=== PATIENT | female | born 1990 | race Caucasian/White ===

== ENCOUNTER 2018-11-29 03:06 | Inpatient (IN) ==
[2018-11-29 03:25] LABS: Basophils # 0.1 K/mm3 (0-0.2); Basophils % 0.5 % (0.1-2.0); Eosinophils # 0.3 K/mm3 (0.0-0.4); Eosinophils % 2.5 % (0.1-12.0); Hemoglobin 14.2 g/dL (12.2-16.2); Lymphocytes # 5.4 K/mm3 (0.7-4.5); Lymphocytes % 49.1 % (10-50); Mean Corpuscular HGB Conc 32.2 g/dL (31.8-35.4); Mean Corpuscular Hemoglobin 28.9 pg (27.0-31.2); Mean Corpuscular Volume 89.9 fl (81-99); Mean Platelet Volume 7.7 fl (7.4-10.4); Monocytes # 0.5 K/mm3 (0.1-1.0); Monocytes % 4.1 % (1.7-9.3); Neutrophils # 4.9 K/mm3 (1.8-7.8); Neutrophils % 43.7 % (37.0-80.0); Platelet Count 301 K/mm3 (142-424); Red Cell Distribution Width 13.5 % (11.5-17.5); White Blood Count 11.1 K/mm3 (4.8-10.8)
[2018-11-29 03:46] LABS: Alanine Aminotransferase 45 U/L (12-78); Albumin Level 3.6 gm/dL (3.4-5.0); Albumin/Globulin Ratio 0.9 (1.1-1.8); Alkaline Phosphatase 89 U/L (46-116); Anion Gap 14.6 mEq/L (5-15); Aspartate Amino Transferase 31 U/L (15-37); Bilirubin,Total 0.3 mg/dL (0.2-1.0); Blood Urea Nitrogen 13 mg/dL (7-18); Calcium 8.8 mg/dL (8.5-10.1); Carbon Dioxide 28 mmol/L (21.0-32.0); Chloride 101 mmol/L (98-107); Globulin 4.1 gm/dl (1.3-3.2); Glucose 179 mg/dL (74-106); Potassium 3.6 mmoL/L (3.5-5.1); Sodium 140 mmol/L (136-145); Total Protein,Serum 7.7 gm/dL (6.4-8.2)
[2018-11-29 03:53] LABS: Acetaminophen 0 ug/mL (10-30); Ethyl Alcohol 0 mg/dL (0-99)
--- NOTE | 2018-11-29 03:54 | Emergency Department Note ---
ED Disposition Clinical Impression: Poisoning by opiate or related narcotic, Trichomonas infection CAP (community acquired pneumonia) Qualifiers: Laterality: unspecified laterality Qualified Code(s): J18.9 - Pneumonia, unspecified organism Obesity Qualifiers: Obesity type: due to excess calories Obesity classification: adult class 2 (BMI 35 - 39.9) Serious obesity comorbidity presence: without serious comorbidity Body mass index: BMI 39.0-39.9 Qualified Code(s): E66.09 - Other obesity due to excess calories; Z68.39 - Body mass index (BMI) 39.0-39.9, adult Disposition: Admitted as Observation Condition on Discharge: Fair Referrals: Provider,Referral, [Primary Care Provider] - - Critical Care Critical Care Time: No Attestation: On 11/29/18, the high probability of a clinically significant, sudden or life threatening deterioration of the following system(s) required my full and direct attention, intervention and personal management. The time I documented below is in addition to time spent performing reported procedures but includes the following listed in this critical care notation. Medical Decision Making - Medical Records Medical records reviewed: Yes: I reviewed the patient's medical records. - Vasiliy Inquiry Pt receiving controlled substance: No Vital Signs: 11/29/18 03:07 11/29/18 04:07 11/29/18 04:30 Temperature 97.9 F Temperature Source Oral Pulse Rate [Right Brachial] 112 H 111 H 101 H Respiratory Rate 14 Blood Pressure [Right Arm] 146/85 H 109/48 L 131/81 Blood Pressure Mean [Right Arm] 105 68 97 02 Sat by Pulse Oximetry 97 98 91 L Oxygen Delivery Method Non-Rebreather Non-Rebreather Nasal Cannula Oxygen Flow Rate (LPM) 10 10 4 11/29/18 05:00 11/29/18 05:30 11/29/18 06:00 Temperature Temperature Source Pulse Rate [Right Brachial] 121 H 112 H 125 H Respiratory Rate 18 15 Blood Pressure [Right Arm] 144/62 H 101/64 L 130/72 Blood Pressure Mean [Right Arm] 89 76 91 02 Sat by Pulse Oximetry 95 90 L 89 L Oxygen Delivery Method Nasal Cannula Nasal Cannula Nasal Cannula Oxygen Flow Rate (LPM) 2 2 2 - Lab Data Lab results reviewed: Yes: I reviewed the patient's lab results. Lab Results 11/29/18 03:15: WBC 11.1 H, RBC 4.90, Hgb 14.2, Hct 44.0, MCV 89.9, MCH 28.9, MCHC 32.2, RDW 13.5, Plt Count 301, MPV 7.7, Neut % (Auto) 43.7, Lymph % (Auto) 49.1, [place] % (Auto) 4.1, Eos % (Auto) 2.5, Baso % (Auto) 0.5, Neut # (Auto) 4.9, Lymph # (Auto) 5.4 H, [place] # (Auto) 0.5, Eos # (Auto) 0.3, Baso # (Auto) 0.1 11/29/18 03:15: Sodium 140, Potassium 3.6, Chloride 101, Carbon Dioxide 28, Anion Gap 14.6, BUN 13, Creatinine 0.92, Estimated Creat Clear 151, Estimated GFR 73, Est GFR ( Amer) 89, Glucose 179 H, Calcium 8.8, Total Bilirubin 0.3, AST 31, ALT 45, Alkaline Phosphatase 89, Troponin I < 0.02, Total Protein 7.7, Albumin 3.6, Globulin 4.1 H, Albumin/Globulin Ratio 0.9 L, Salicylates 3.0, Acetaminophen 0 L, Plasma/Serum Alcohol 0 11/29/18 04:15: Urine HCG, Qual Negative 11/29/18 04:15: Urine Opiates Screen Negative, Urine Methadone Screen Negative, Ur Barbituates Screen Negative, Ur Phencyclidine Scrn Negative, Ur Amphetamines Screen Negative, U Benzodiazepines Scrn Negative, Urine Cocaine Screen Negative, U Marijuana (THC) Screen Positive H 11/29/18 04:32: Urine Color Yellow, Urine Appearance Clear, Urine pH 6.5, Ur Specific [place] 1.025, Urine Protein 1+, Urine Glucose (UA) Negative, Urine Ketones Negative, Urine Blood 2+, Urine Nitrate Negative, Urine Bilirubin Negative, Urine Urobilinogen 0.2, Ur Leukocyte Esterase Negative, Urine RBC 5- 10, Urine WBC 5-10, Ur Squamous Epith Cells 20-50, Urine Bacteria 1+, Urine Mucus 1+, Urine Trichomonas 1+ 11/29/18 04:55: Lactate 1.5 Result diagrams: 11/29/18 03:15 11/29/18 03:15 Orders (Tests/Meds): ED MEDICATIONS Generic Name Dose Route Start Last Admin Trade Name Eleazar PRN Reason Stop Dose Admin Sodium Chloride 1,000 mls @ 999 mls/hr 11/29/18 03:15 11/29/18 03:30 Sod Chlor 0.9% 1000ml Bag IV 11/29/18 04:15 999 mls/hr .Q1H1M ANTOINE Administration Ceftriaxone Sodium 1 gm/ 50 mls @ 100 mls/hr 11/29/18 05:00 11/29/18 04:56 Sodium Chloride IV 12/13/18 04:59 100 mls/hr Q24H ANTOINE Administration Protocol Azithromycin 500 mg/ Sodium 250 mls @ 250 mls/hr 11/29/18 06:00 11/29/18 05:56 Chloride IV 12/13/18 05:59 250 mls/hr Q24H ANTOINE Administration Protocol Sodium Chloride 10 ml 11/29/18 03:14 Saline Flush 10ml Syringe IV 12/29/18 03:13 NEEDED PRN Maintain IV Site Discontinued Medications Generic Name Dose Route Start Last Admin Trade Name Eleazar PRN Reason Stop Dose Admin Albuterol/Ipratropium 3 ml 11/29/18 04:34 11/29/18 04:40 Duoneb 3ml Neb IH 11/29/18 04:35 3 ml ONCE ONE Administration Methylprednisolone Sodium Succinate 125 mg 11/29/18 04:50 11/29/18 04:57 Solu-Medrol 125mg/2ml Vial IV 11/29/18 04:51 125 mg ONCE ONE Administration ORDERS Category Date Time Status Urinalysis and Microscopic Stat Lab 11/29/18 04:32 Ordered Blood Culture Stat Micro 11/29/18 04:51 Ordered Blood Culture Stat Micro 11/29/18 04:51 Ordered Blood Culture Stat Micro 11/29/18 04:51 Ordered ECG Request by /Naseem Stat Y 11/29/18 03:14 Ordered - Radiology Data #1 Image(s): Chest Image Reviewed: Yes I reviewed the patient's radiology image Preliminary Findings: Abnormal (bilar cap) - ECG Data Tracing #1 Arrhythmias present: sinus tach Ischemic changes: non-specific ST-T wave changes - Physician Consults Physician Consulted: mac Reason -: Admission Overdose HPI - General Chief Complaint: Overdose Stated Complaint: OVERDOSE Time Seen by Provider: 11/29/18 03:10 Mode of Arrival: EMS Source of Information: Patient, Relative, EMS, Medical Record Limitations: No Limitations Description of Symptoms (Recalled from ER Triage Doc. by RN): PT BROUGHT IN BY EMS FOR SUSPECTED OVERDOSE. PT REPORTS SHE "TRIED IT ONE TIME" AND THAT SHE "THINKS IT WAS HERION". PT REPORTED THAT SHE SNORTED IT. REPORTS HX OF ETOH ABUSE BUT NONE TONIGHT. - History of Present Illness HPI Narrative: pt with reported use of heroin and had resp arest with positive resp to narcan - pt with sob - MD complaint: accidental overdose Onset (ago): hour(s) Timing confirmed by: other (ems) Context: Accidental Overdose: wanted to get high Treatments Prior to Arrival: narcan - Related Data Home Medications Medication Instructions Recorded Confirmed No Known Home Medications 11/29/18 11/29/18 Allergies Allergy/AdvReac Type Severity Reaction Status Date / Time No Known Allergies Allergy Verified 11/29/18 03:[address] [facility] History - Hepatitis A Screen Drug use history?: Yes High risk sexual behaviors?: Yes History of sexually transmitted infection?: No Currently employed?: No Childcare worker?: No Do you have indoor plumbing?: Yes Do you have electricity?: Yes Attestation statement:: This patient has been screened for Hepatitis A risk factors. I have reviewed the patient's past medical history: Yes Medical History: Denies:: Cancer, Diabetes Mellitus Type 1, Diabetes Mellitus Type 2, MRSA Amputation: No Fractures: No - Social History Smoking Status: Current every day smoker Tobacco Type: cigarettes Alcohol Intake: current Substance Use Type: heroin Last Used Substance: just [employer] Occupational Status: unemployed - Psychiatric History Expresses thoughts of harming self/others: None Suicide Plan Description: No Plan ROS Obtained: Yes All systems reviewed & no additional complaints - Constitutional Constitutional: Denies fever(s) - Eyes Eyes: Denies change in vision - ENT Ears, Nose, Mouth, and Throat: Denies sore throat - Cardiovascular Cardiovascular: Denies chest pain at rest - Respiratory Respiratory: No cough, No non-productive cough, Yes dyspnea - Gastrointestinal Gastrointestingal: Denies: abdominal pain - Genitourinary Female Genitourinary: Denies dysuria - Musculoskeletal Musculoskeletal: Denies neck pain - Integumentary/Breasts Skin/Breast: Denies rash - Neurologic Neurologic: Denies seizure-like activity Physical Exam - General General appearance: obese - Head Head exam: normocephalic - Eye Eye exam: Present: PERRL, EOMI, other (rt subconj hemmorrage ) - ENT ENT exam: Present: mucous membranes dry - Neck Neck exam: Absent: trachea midline - Respiratory Respiratory exam: Present: other (bilat rhonchi ). Absent: respiratory distress - Cardiovascular Cardiovascular exam: Present: regular rate. Absent: systolic murmur - Abdominal Exam Abdominal exam: Present: soft - Extremities Exam Extremities exam: Absent: calf tenderness - Neurological Exam Neurological exam: Present: alert, oriented X3, CN II-XII intact - Psychiatric Psychiatric exam: Absent: anxious - Skin Skin exam: Absent: rash
[2018-11-29 04:51] LABS: Microscopic, Urine URINE MICROSCOPIC (MICROSCOPIC)
[2018-11-29 04:58] LABS: Appearance,Urine CLEAR (Clear); Bilirubin,Urine Negative (Negative); Blood, Urine 2+ (Negative); Color,Urine YELLOW (Yellow); Glucose,Urine (UA) Negative (Negative); Ketones,Urine Negative (Negative); Leukocyte Esterase,Urine Negative (Negative); PH,Urine 6.5 (5.0-8.5); Protein,Urine 1+ (Negative); Specific Gravity, Urine 1.025 (1.005-1.030); Urobilinogen,Urine 0.2 EU/dl (0.2)
[2018-11-29 05:33] LABS: Bacteria,Urine 1+ /lpf; Mucus,Urine 1+ /lpf; Squamous Epithelial Cell,Urine 20-50 #/hpf (0-5); Trichomonas,Urine 1+ /lpf
[2018-11-29 05:44] LABS: Amphetamine/Metha Screen,Urine Negative ng/mL (<1000); Barbiturates Screen,Urine Negative ng/mL (<200); Benzodiazepines Screen,Urine Negative ng/mL (<200); Cannabinoid Screen,Urine Positive ng/mL (<50); Cocaine Screen,Urine Negative ng/mL (<300); Methadone Screen,Urine Negative ng/mL (<300); Opiate Screen,Urine Negative ng/mL (<300); Phencyclidine Screen,Urine Negative ng/mL (<25)
--- NOTE | 2018-11-29 07:36 | Pharmacy Consult Notes ---
[facility] Pharmacy VTE Monitoring - Patient Demographics Admission date: 11/29/18 Report Date: 11/29/18 Time: 07:36 Allergies/Adverse Reactions: Patient Allergies No Known Allergies Allergy (Verified 11/29/18 03:14) Height: 1.68 m Weight: 114.475 kg Patient Problems: Current Active Problems CAP (community acquired pneumonia) (Acute) Poisoning by opiate or related narcotic (Acute) Obesity (Acute) Trichomonas infection (Acute) - VTE Risk Labs: VTE Related Lab Results Hgb 14.2 g/dL (12.2-16.2) 11/29/18 03:15 Hct 44.0 % (37.0-47.0) 11/29/18 03:15 Plt Count 301 K/mm3 (142-424) 11/29/18 03:15 BUN 13 mg/dL (7-18) 11/29/18 03:15 Creatinine 0.92 mg/dL (0.55-1.02) 11/29/18 03:15 Estimated Creat Clear 151 mL/min (50-200) 11/29/18 03:15 - Prophylaxis VTE Prophylaxis Ordered?: Yes Types of VTE Prophylaxis: TEDS Thigh High Location of Applied Device: Bilateral Lower Extremeties - VTE Diagnosis Confirmed Treatment or plan recommended: Continue Current Treatment
--- NOTE | 2018-11-29 08:23 | History & Physical Report ---
*Admission Date: 11/29/18 <Margo Cao 11/29/18 08:36> *Chief complaint: cough, heroin OD <Margo Cao 11/29/18 08:36> *History of present illness: Ms Rojas is a 28-year-old female with a history of PCOS, hypertension, and recurrent UTIs. She states she is unsure what time, but she used heroin and the next thing she remembers was being on a stretcher. According to the ER note, she snorted the heroin. The patient states she was given Narcan. She says this is the first time she has ever used heroin. She does admit to smoking marijuana on occasion. She denies any other drug use. She does drink alcohol frequently. She was evaluated in the emergency room for a heroin overdose and was also found to have a community-acquired pneumonia. She states approximately 2 days ago she began to develop a cough and some pain in her chest with coughing. Of note she does smoke a pack cigarettes daily. She was admitted for further evaluation and treatment. <Margo Cao 11/29/18 08:36> [facility] History I have reviewed the patient's past medical history: Yes <Margo Cao 11/29/18 08:36> Medical History: Reports:: Hypertension Denies:: Cancer, Diabetes Mellitus Type 1, Diabetes Mellitus Type 2, MRSA <Margo Cao 11/29/18 08:36> Have you ever received a pneumonia vaccine?: No <Margo Cao 11/29/18 08:36> Have you received a flu vaccine this season?: No <Margo Cao 11/29/18 08:36> Other Medical History: Reports: Other (PCOS, recurrent UTI's) <Margo Cao 11/29/18 08:36> Other Surgeries: Yes: Other (Ovarian cysts removed) <Margo Cao 11/29/18 08:36> Amputation: No <Margo Cao 11/29/18 08:36> Fractures: No <Margo Cao 11/29/18 08:36> - *Social History Smoking Status: Current every day smoker <Margo Cao 11/29/18 08:36> Tobacco Type: cigarettes <Margo Cao 11/29/18 08:36> # Packs/Day (cigarettes): 1 <SmithMicha arauza 11/29/18 08:36> Alcohol Intake: current <Micha Caoa 11/29/18 08:36> Substance Use Type: heroin <Micha Caoa 11/29/18 08:36> Last Used Substance: just [employer] <Micha Caoa 11/29/18 08:36> Occupational Status: unemployed <Micha Caoa 11/29/18 08:36> Travel in the last 8 weeks: None <Micha Caoa 11/29/18 08:36> - Psychiatric History Expresses thoughts of harming self/others: None <Margo Cao 11/29/18 08:36> Suicide Plan Description: No Plan <Margo Cao 11/29/18 08:36> *Family Hx:: Cancer (breast), Coronary Artery Disease, Diabetes, Heart Attack, Hypertension <Micha Caoa 11/29/18 08:36> Review of Systems - Constitutional Denies fever(s), Denies weakness <KileyMargo 11/29/18 08:36> - Eyes Denies blurry vision, Denies double vision <KileyMargo 11/29/18 08:36> - ENT Reports nasal congestion, Reports sore throat <KileyMargo 11/29/18 08:36> - *Cardiovascular Denies chest pain, Denies shortness of breath, Denies rapid, pounding, or irregular heartbeat <KileyMargo 11/29/18 08:36> - *Respiratory Reports chest congestion, Reports cough, Denies shortness of breath <KileyMargo 11/29/18 08:36> - *Gastrointestinal Reports constipation, Reports loose stools, Denies abdominal pain, Denies nausea, Denies vomiting <KileyMargo 11/29/18 08:36> - *Genitourinary Reports painful urination, Denies difficulty urinating <Micha Caoa 11/29/18 08:36> - *Musculoskeletal Reports back pain, Denies body aches <KileyMargo 11/29/18 08:36> - *Neurologic Denies headache(s), Denies seizure-like activity, Denies dizziness, Denies weakness <Margo Cao - 11/29/18 08:36> Meds Home Medications Medication Instructions Recorded Confirmed Type No Known Home Medications 11/29/18 11/29/18 History <Vargas Bolivar - 11/29/18 09:39> Allergies Allergy/AdvReac Type Severity Reaction Status Date / Time No Known Allergies Allergy Verified 11/29/18 08:45 <Vargas Bolivar - 11/29/18 09:39> Exam Vital signs and Labs for Last 24 Hours: Temp Pulse Resp BP Pulse Ox 98.3 F 89 18 150/93 H 93 L 11/29/18 07:05 11/29/18 09:25 11/29/18 07:05 11/29/18 07:05 11/29/18 09:25 Laboratory Results - last 24 hr 11/29/18 03:15: WBC 11.1 H, RBC 4.90, Hgb 14.2, Hct 44.0, MCV 89.9, MCH 28.9, MCHC 32.2, RDW 13.5, Plt Count 301, MPV 7.7, Neut % (Auto) 43.7, Lymph % (Auto) 49.1, [place] % (Auto) 4.1, Eos % (Auto) 2.5, Baso % (Auto) 0.5, Neut # (Auto) 4.9, Lymph # (Auto) 5.4 H, [place] # (Auto) 0.5, Eos # (Auto) 0.3, Baso # (Auto) 0.1 11/29/18 03:15: Sodium 140, Potassium 3.6, Chloride 101, Carbon Dioxide 28, Anion Gap 14.6, BUN 13, Creatinine 0.92, Estimated Creat Clear 151, Estimated GFR 73, Est GFR ( Amer) 89, Glucose 179 H, Calcium 8.8, Total Bilirubin 0.3, AST 31, ALT 45, Alkaline Phosphatase 89, Troponin I < 0.02, Total Protein 7.7, Albumin 3.6, Globulin 4.1 H, Albumin/Globulin Ratio 0.9 L, Salicylates 3.0, Acetaminophen 0 L, Plasma/Serum Alcohol 0 11/29/18 04:15: Urine HCG, Qual Negative 11/29/18 04:15: Urine Opiates Screen Negative, Urine Methadone Screen Negative, Ur Barbituates Screen Negative, Ur Phencyclidine Scrn Negative, Ur Amphetamines Screen Negative, U Benzodiazepines Scrn Negative, Urine Cocaine Screen Negative, U Marijuana (THC) Screen Positive H 11/29/18 04:32: Urine Color Yellow, Urine Appearance Clear, Urine pH 6.5, Ur Specific [place] 1.025, Urine Protein 1+, Urine Glucose (UA) Negative, Urine Ketones Negative, Urine Blood 2+, Urine Nitrate Negative, Urine Bilirubin Negative, Urine Urobilinogen 0.2, Ur Leukocyte Esterase Negative, Urine RBC 5- 10, Urine WBC 5-10, Ur Squamous Epith Cells 20-50, Urine Bacteria 1+, Urine Mucus 1+, Urine Trichomonas 1+ 11/29/18 04:55: Lactate 1.5 <Vargas Bolivar - 11/29/18 09:39> Temp Pulse Resp BP Pulse Ox 98.3 F 109 H 18 150/93 H 94 L 11/29/18 07:05 11/29/18 07:05 11/29/18 07:05 11/29/18 07:05 11/29/18 07:05 Laboratory Results - last 24 hr 11/29/18 03:15: WBC 11.1 H, RBC 4.90, Hgb 14.2, Hct 44.0, MCV 89.9, MCH 28.9, MCHC 32.2, RDW 13.5, Plt Count 301, MPV 7.7, Neut % (Auto) 43.7, Lymph % (Auto) 49.1, [place] % (Auto) 4.1, Eos % (Auto) 2.5, Baso % (Auto) 0.5, Neut # (Auto) 4.9, Lymph # (Auto) 5.4 H, [place] # (Auto) 0.5, Eos # (Auto) 0.3, Baso # (Auto) 0.1 11/29/18 03:15: Sodium 140, Potassium 3.6, Chloride 101, Carbon Dioxide 28, Anion Gap 14.6, BUN 13, Creatinine 0.92, Estimated Creat Clear 151, Estimated GFR 73, Est GFR ( Amer) 89, Glucose 179 H, Calcium 8.8, Total Bilirubin 0.3, AST 31, ALT 45, Alkaline Phosphatase 89, Troponin I < 0.02, Total Protein 7.7, Albumin 3.6, Globulin 4.1 H, Albumin/Globulin Ratio 0.9 L, Salicylates 3.0, Acetaminophen 0 L, Plasma/Serum Alcohol 0 11/29/18 04:15: Urine HCG, Qual Negative 11/29/18 04:15: Urine Opiates Screen Negative, Urine Methadone Screen Negative, Ur Barbituates Screen Negative, Ur Phencyclidine Scrn Negative, Ur Amphetamines Screen Negative, U Benzodiazepines Scrn Negative, Urine Cocaine Screen Negative, U Marijuana (THC) Screen Positive H 11/29/18 04:32: Urine Color Yellow, Urine Appearance Clear, Urine pH 6.5, Ur Specific [place] 1.025, Urine Protein 1+, Urine Glucose (UA) Negative, Urine Ketones Negative, Urine Blood 2+, Urine Nitrate Negative, Urine Bilirubin Negative, Urine Urobilinogen 0.2, Ur Leukocyte Esterase Negative, Urine RBC 5- 10, Urine WBC 5-10, Ur Squamous Epith Cells 20-50, Urine Bacteria 1+, Urine Mucus 1+, Urine Trichomonas 1+ 11/29/18 04:55: Lactate 1.5 <Margo Cao - 11/29/18 08:36> I & O for Last 24 hours: Intake & Output 11/26/18 11/27/18 11/28/18 11/29/18 11:59 11:59 11:59 11:59 Intake Total 1400 / 1400 Balance 1400 / 1400 Weight 252 lb 6 oz <Vargas Bolivar - 11/29/18 09:39> Intake & Output 11/26/18 11/27/18 11/28/18 11/29/18 11:59 11:59 11:59 11:59 Intake Total 1400 / 1400 Balance 1400 / 1400 Weight 252 lb 6 oz <Margo Cao - 11/29/18 08:36> - Constitutional no acute distress <Margo Cao 11/29/18 08:36> - *Routine HEENT Exam Head: Present: normocephalic, atraumatic <Margo Cao 11/29/18 08:36> Eye: Present: EOMI, PERRL (right subconjunctival hemorrhage) <Margo Cao 11/29/18 08:36> ENT: Present: mucous membranes dry <Margo Cao 11/29/18 08:36> - *Routine Neck Exam Present: supple. Absent: lymphadenopathy <Margo Cao 11/29/18 08:36> - *Routine Respiratory Exam Present: rhonchi (throughout), wheezes (throughout) <Margo Cao 11/29/18 08:36> - *Routine Cardiovascular Exam Present: RRR [facility] 08:36> - *Routine Abdominal Exam Present: soft, normoactive bowel sounds. Absent: tenderness <Margo Cao 11/29/18 08:36> - *Routine Extremities Exam Absent: cyanosis, clubbing, edema <[facility] 11/29/18 08:36> - *Routine Skin Exam Present: warm. Absent: rash <Margo Cao 11/29/18 08:36> - *Routine Neurological Exam Present: alert, oriented X3 [facility] 08[facility]36> H&P: Result - Impressions CXR - Bilateral upper lobe pneumonia Left Foot X-ray - No acute finding <[facility] 11/29/18 08:36> Assessment and Plan (1) CAP (community acquired pneumonia) Current visit: Yes Status: Acute Qualifiers: Laterality: unspecified laterality Qualified Code(s): J18.9 - Pneumonia, unspecified organism Category: Medical Code(s): J18.9 - Pneumonia, unspecified organism (2) Heroin overdose Current visit: Yes Status: Acute Category: Medical Code(s): T40.1X1A - Poisoning by heroin, accidental (unintentional), initial encounter (3) Trichomonas infection Current visit: Yes Status: Acute Category: Medical Code(s): A59.9 - Trichomoniasis, unspecified <Margo Cao 11/29/18 08:19> (1) CAP (community acquired pneumonia) Current visit: Yes Status: Acute Qualifiers: Laterality: unspecified laterality Qualified Code(s): J18.9 - Pneumonia, unspecified organism Category: Medical Code(s): J18.9 - Pneumonia, unspecified organism (2) Heroin overdose Current visit: Yes Status: Acute Category: Medical Code(s): T40.1X1A - Poisoning by heroin, accidental (unintentional), initial encounter (3) Trichomonas infection Current visit: Yes Status: Acute Category: Medical Code(s): A59.9 - Trichomoniasis, unspecified (4) Subconjunctival hemorrhage of right eye Current visit: Yes Status: Acute Category: Medical Code(s): H11.31 - Conjunctival hemorrhage, right eye <Vargas Bolivar - 11/29/18 09:39> - Assessment and plan all Dx Assessment and Plan for all problems:: Patient seen and examined. Concur with above assessment and plan. Will start oral Flagyl. <Vargas Bolivar - 11/29/18 09:39> Will continue IV antibiotics, IV steroids, and duo nebs for her pneumonia. The patient currently has oxygen in place. Will discuss starting on flagyl with Dr. Bolivar for the positive Trichomonas in her urine. Will consult care management for discussion of treatment options for her drug abuse. <Margo Cao - 11/29/18 08:36>
[2018-11-30 07:25] LABS: Hematocrit 39.2 % (37.0-47.0); Hemoglobin 12.4 g/dL (12.2-16.2); Lymphocytes # 0.9 K/mm3 (0.7-4.5); Lymphocytes % 5.5 % (10-50); Mean Corpuscular HGB Conc 31.7 g/dL (31.8-35.4); Mean Corpuscular Hemoglobin 28.8 pg (27.0-31.2); Mean Corpuscular Volume 90.8 fl (81-99); Mean Platelet Volume 8.1 fl (7.4-10.4); Monocytes # 0.3 K/mm3 (0.1-1.0); Neutrophils # 14.2 K/mm3 (1.8-7.8); Neutrophils % 92.5 % (37.0-80.0); Platelet Count 279 K/mm3 (142-424); Red Blood Count 4.32 M/mm3 (4.20-5.40); Red Cell Distribution Width 13.5 % (11.5-17.5); White Blood Count 15.4 K/mm3 (4.8-10.8)
[2018-11-30 07:44] LABS: Anion Gap 13.4 mEq/L (5-15); Calcium 9.1 mg/dL (8.5-10.1); Potassium 4.4 mmoL/L (3.5-5.1)
--- NOTE | 2018-11-30 08:26 | Progress Note ---
<Margo Cao - Last Filed: 11/30/18 08:24> Internal Medicine - PN: Subj *Date: 11/30/18 *Time: 08:24 Interval history: Patient states she is feeling better today. Her shortness of air has improved. She is still coughing, but her chest is no longer hurting. She slept decent last night and ate a good breakfast this morning. Exam Vital signs and Labs for Last 24 Hours: Temp Pulse Resp BP Pulse Ox 98.0 F 79 16 115/70 94 L 11/30/18 04:00 11/30/18 06:36 11/30/18 04:00 11/30/18 04:00 11/30/18 06:36 Laboratory Results - last 24 hr 11/30/18 06:48: WBC 15.4 H D, RBC 4.32, Hgb 12.4, Hct 39.2, MCV 90.8, MCH 28.8, MCHC 31.7 L, RDW 13.5, Plt Count 279, MPV 8.1, Neut % (Auto) 92.5 H, Lymph % (Auto) 5.5 L, [place] % (Auto) 2.0, Eos % (Auto) 0.0 L, Baso % (Auto) 0.0 L, Neut # (Auto) 14.2 H, Lymph # (Auto) 0.9, [place] # (Auto) 0.3, Eos # (Auto) 0.0, Baso # (Auto) 0.0 11/30/18 06:48: Sodium 138, Potassium 4.4 D, Chloride 105, Carbon Dioxide 24, Anion Gap 13.4, BUN 11, Creatinine 0.68 D, Estimated Creat Clear 225, Estimated GFR 104, Est GFR ( Amer) 126 D, Glucose 160 H, Calcium 9.1 I & O for Last 24 hours: Intake & Output 11/27/18 11/28/18 11/29/18 11/30/18 11:59 11:59 11:59 11:59 Intake Total 1400 / 1400 1358 / 1358 Balance 1400 / 1400 1358 / 1358 Weight 252 lb 6 oz 253 lb 2 oz Microbiology Reports for the Last 24 Hours: Microbiology 11/29/18 04:51 Blood Blood Culture - Preliminary 11/29/18 10:05 Sputum - Expectorated Sputum Gram Stain - Final - Constitutional no acute distress - *Routine Respiratory Exam Present: wheezes (bilaterally but much improved) - *Routine Cardiovascular Exam Present: RRR - *Routine Abdominal Exam Present: soft, normoactive bowel sounds. Absent: tenderness - *Routine Extremities Exam Absent: cyanosis, clubbing, edema Assessment and Plan (1) CAP (community acquired pneumonia) Current visit: Yes Status: Acute Qualifiers: Laterality: unspecified laterality Qualified Code(s): J18.9 - Pneumonia, unspecified organism Category: Medical Code(s): J18.9 - Pneumonia, unspecified organism (2) Heroin overdose Current visit: Yes Status: Acute Category: Medical Code(s): T40.1X1A - Poisoning by heroin, accidental (unintentional), initial encounter (3) Trichomonas infection Current visit: Yes Status: Acute Category: Medical Code(s): A59.9 - Trichomoniasis, unspecified (4) Subconjunctival hemorrhage of right eye Current visit: Yes Status: Acute Category: Medical Code(s): H11.31 - Conjunctival hemorrhage, right eye - Assessment and plan all Dx Assessment and Plan for all problems:: Still awaiting blood and sputum cultures. Symptomatically she is improving. Will discuss further care with Dr. Bolivar. <Vargas Bolivar - Last Filed: 11/30/18 17:52> Exam Vital signs and Labs for Last 24 Hours: Temp Pulse Resp BP Pulse Ox 97.9 F 77 18 112/73 97 11/30/18 16:00 11/30/18 16:00 11/30/18 16:00 11/30/18 16:00 11/30/18 16:00 Laboratory Results - last 24 hr 11/30/18 06:48: WBC 15.4 H D, RBC 4.32, Hgb 12.4, Hct 39.2, MCV 90.8, MCH 28.8, MCHC 31.7 L, RDW 13.5, Plt Count 279, MPV 8.1, Neut % (Auto) 92.5 H, Lymph % (Auto) 5.5 L, [place] % (Auto) 2.0, Eos % (Auto) 0.0 L, Baso % (Auto) 0.0 L, Neut # (Auto) 14.2 H, Lymph # (Auto) 0.9, [place] # (Auto) 0.3, Eos # (Auto) 0.0, Baso # (Auto) 0.0, Total Counted 100, Neutrophils % (Manual) 90 H, Band Neutrophils % 2.0, Lymphocytes % (Manual) 5 L, Atypical Lymphs % 1.0, Monocytes % (Manual) 2, Platelet Estimate Normal 11/30/18 06:48: Sodium 138, Potassium 4.4 D, Chloride 105, Carbon Dioxide 24, Anion Gap 13.4, BUN 11, Creatinine 0.68 D, Estimated Creat Clear 225, Estimated GFR 104, Est GFR ( Amer) 126 D, Glucose 160 H, Calcium 9.1 I & O for Last 24 hours: Intake & Output 11/28/18 11/29/18 11/30/18 12/01/18 11:59 11:59 11:59 11:59 Intake Total 1400 / 1400 1718 / 1718 360 / 360 Balance 1400 / 1400 1718 / 1718 360 / 360 Weight 252 lb 6 oz 253 lb 2 oz Microbiology Reports for the Last 24 Hours: Microbiology 11/29/18 04:51 Blood Blood Culture - Preliminary 11/29/18 04:51 Blood Blood Culture - Preliminary 11/29/18 10:05 Sputum - Expectorated Sputum Gram Stain - Final 11/29/18 10:05 Sputum - Expectorated Sputum Sputum Culture - Preliminary Assessment and Plan (1) CAP (community acquired pneumonia) Current visit: Yes Status: Acute Qualifiers: Laterality: unspecified laterality Qualified Code(s): J18.9 - Pneumonia, unspecified organism Category: Medical Code(s): J18.9 - Pneumonia, unspecified organism (2) Heroin overdose Current visit: Yes Status: Acute Category: Medical Code(s): T40.1X1A - Poisoning by heroin, accidental (unintentional), initial encounter (3) Trichomonas infection Current visit: Yes Status: Acute Category: Medical Code(s): A59.9 - Trichomoniasis, unspecified (4) Subconjunctival hemorrhage of right eye Current visit: Yes Status: Acute Category: Medical Code(s): H11.31 - Conjunctival hemorrhage, right eye - Assessment and plan all Dx Assessment and Plan for all problems:: Patient seen and examined this AM. Subjectively feeling better this morning. Lungs sound better. Still awaiting cultures. Will wean to RA and possibly discharge home later today.
[2018-11-30 08:59] LABS: Lymphocytes % 5 % (10-50); Monocytes % 2 % (2-9); Neutrophils % 90 % (42-76); Total Cells Counted 100
[2018-12-01 07:04] LABS: Basophils % 0.2 % (0.1-2.0); Eosinophils % 0.2 % (0.1-12.0); Hematocrit 37.6 % (37.0-47.0); Lymphocytes # 3.2 K/mm3 (0.7-4.5); Lymphocytes % 25.6 % (10-50); Mean Corpuscular HGB Conc 32.1 g/dL (31.8-35.4); Mean Corpuscular Hemoglobin 29.2 pg (27.0-31.2); Mean Corpuscular Volume 91.2 fl (81-99); Mean Platelet Volume 8.1 fl (7.4-10.4); Monocytes # 0.6 K/mm3 (0.1-1.0); Monocytes % 4.9 % (1.7-9.3); Neutrophils # 8.6 K/mm3 (1.8-7.8); Neutrophils % 69.1 % (37.0-80.0); Platelet Count 259 K/mm3 (142-424); Red Blood Count 4.12 M/mm3 (4.20-5.40); Red Cell Distribution Width 13.8 % (11.5-17.5); White Blood Count 12.4 K/mm3 (4.8-10.8)
--- NOTE | 2018-12-01 08:22 | Progress Note ---
<Margo Cao - Last Filed: 12/01/18 08:19> Internal Medicine - PN: Subj *Date: 12/01/18 *Time: 08:19 Interval history: Patient states she is feeling much better this morning. She denies any pain. She is less short of breath and her cough has improved. She slept well last night and ate breakfast this morning. Exam Vital signs and Labs for Last 24 Hours: Temp Pulse Resp BP Pulse Ox 98.2 F 75 16 123/84 97 12/01/18 04:00 12/01/18 04:00 12/01/18 04:00 12/01/18 04:00 12/01/18 04:00 Laboratory Results - last 24 hr 11/30/18 06:48: Total Counted 100, Neutrophils % (Manual) 90 H, Band Neutrophils % 2.0, Lymphocytes % (Manual) 5 L, Atypical Lymphs % 1.0, Monocytes % (Manual) 2, Platelet Estimate Normal 12/01/18 06:32: WBC 12.4 H, RBC 4.12 L, Hgb 12.0 L, Hct 37.6, MCV 91.2, MCH 29.2, MCHC 32.1, RDW 13.8, Plt Count 259, MPV 8.1, Neut % (Auto) 69.1, Lymph % (Auto) 25.6, [place] % (Auto) 4.9, Eos % (Auto) 0.2, Baso % (Auto) 0.2, Neut # (Auto) 8.6 H, Lymph # (Auto) 3.2, Cass # (Auto) 0.6, Eos # (Auto) 0.0, Baso # (Auto) 0.0 12/01/18 06:32: Hemoglobin A1c 5.7 I & O for Last 24 hours: Intake & Output 11/28/18 11/29/18 11/30/18 12/01/18 11:59 11:59 11:59 11:59 Intake Total 1400 / 1400 1718 / 1718 4218 / 4218 Balance 1400 / 1400 1718 / 1718 8 / 4218 Weight 252 lb 6 oz 253 lb 2 oz 252 lb 3 oz Microbiology Reports for the Last 24 Hours: Microbiology 11/29/18 04:51 Blood Blood Culture - Preliminary Gram Positive Cocci 11/29/18 04:51 Blood Blood Culture - Preliminary Gram Positive Cocci Gram Positive Cocci#2 11/29/18 10:05 Sputum - Expectorated Sputum Gram Stain - Final 11/29/18 10:05 Sputum - Expectorated Sputum Sputum Culture - Preliminary - Constitutional no acute distress - *Routine Respiratory Exam Present: CTA bilaterally - *Routine Cardiovascular Exam Present: RRR - *Routine Abdominal Exam Present: soft, normoactive bowel sounds. Absent: tenderness - *Routine Extremities Exam Absent: cyanosis, clubbing, edema Assessment and Plan (1) CAP (community acquired pneumonia) Current visit: Yes Status: Acute Qualifiers: Laterality: unspecified laterality Qualified Code(s): J18.9 - Pneumonia, unspecified organism Category: Medical Code(s): J18.9 - Pneumonia, unspecified organism (2) Heroin overdose Current visit: Yes Status: Acute Category: Medical Code(s): T40.1X1A - Poisoning by heroin, accidental (unintentional), initial encounter (3) Trichomonas infection Current visit: Yes Status: Acute Category: Medical Code(s): A59.9 - Trichomoniasis, unspecified (4) Subconjunctival hemorrhage of right eye Current visit: Yes Status: Acute Category: Medical Code(s): H11.31 - Conjunctival hemorrhage, right eye (5) Bacteremia due to Staphylococcus Current visit: Yes Status: Acute Category: Medical Code(s): R78.81 - Bacteremia - Assessment and plan all Dx Assessment and Plan for all problems:: Patient is stable to be discharged today. We are still awaiting the sensitivities of her blood culture. We will go ahead and discharge and have her come back for daily vancomycin. <Vargas Bolivar - Last Filed: 12/01/18 08:36> Exam Vital signs and Labs for Last 24 Hours: Temp Pulse Resp BP Pulse Ox 98.2 F 75 16 123/84 97 12/01/18 04:00 12/01/18 04:00 12/01/18 04:00 12/01/18 04:00 12/01/18 04:00 Laboratory Results - last 24 hr 11/30/18 06:48: Total Counted 100, Neutrophils % (Manual) 90 H, Band Neutrophils % 2.0, Lymphocytes % (Manual) 5 L, Atypical Lymphs % 1.0, Monocytes % (Manual) 2, Platelet Estimate Normal 12/01/18 06:32: WBC 12.4 H, RBC 4.12 L, Hgb 12.0 L, Hct 37.6, MCV 91.2, MCH 29.2, MCHC 32.1, RDW 13.8, Plt Count 259, MPV 8.1, Neut % (Auto) 69.1, Lymph % (Auto) 25.6, [place] % (Auto) 4.9, Eos % (Auto) 0.2, Baso % (Auto) 0.2, Neut # (Auto) 8.6 H, Lymph # (Auto) 3.2, [place] # (Auto) 0.6, Eos # (Auto) 0.0, Baso # (Auto) 0.0 12/01/18 06:32: Hemoglobin A1c 5.7 I & O for Last 24 hours: Intake & Output 11/28/18 11/29/18 11/30/18 12/01/18 11:59 11:59 11:59 11:59 Intake Total 1400 / 1400 1718 / 1718 4218 / 4218 Balance 1400 / 1400 1718 / 1718 4218 / 4218 Weight 252 lb 6 oz 253 lb 2 oz 252 lb 3 oz Microbiology Reports for the Last 24 Hours: Microbiology 11/29/18 04:51 Blood Blood Culture - Preliminary Gram Positive Cocci 11/29/18 04:51 Blood Blood Culture - Preliminary Gram Positive Cocci Gram Positive Cocci#2 11/29/18 10:05 Sputum - Expectorated Sputum Gram Stain - Final 11/29/18 10:05 Sputum - Expectorated Sputum Sputum Culture - Preliminary Assessment and Plan (1) CAP (community acquired pneumonia) Current visit: Yes Status: Acute Qualifiers: Laterality: unspecified laterality Qualified Code(s): J18.9 - Pneumonia, unspecified organism Category: Medical Code(s): J18.9 - Pneumonia, unspecified organism (2) Heroin overdose Current visit: Yes Status: Acute Category: Medical Code(s): T40.1X1A - Poisoning by heroin, accidental (unintentional), initial encounter (3) Trichomonas infection Current visit: Yes Status: Acute Category: Medical Code(s): A59.9 - Trichomoniasis, unspecified (4) Subconjunctival hemorrhage of right eye Current visit: Yes Status: Acute Category: Medical Code(s): H11.31 - Conjunctival hemorrhage, right eye (5) Bacteremia due to Staphylococcus Current visit: Yes Status: Acute Category: Medical Code(s): R78.81 - Bacteremia - Assessment and plan all Dx Assessment and Plan for all problems:: SHe feels well and is clinically improved. Sensitivities for blood cultures will not be available until tomorrow. Will plan to discharge home today with plan for outpt IV Vancomycin until sensitivities are available. May be able to switch to po eventually.
--- NOTE | 2018-12-01 11:44 | Discharge Summary ---
General - General Admission date:: 11/29/18 <Vargas Bolivar - 12/07/18 18:12> 11/29/18 <Margo Cao - 12/01/18 11:46> Discharge date: 12/01/18 <Margo Cao - 12/01/18 11:46> HPI HPI: Ms Rojas is a 28-year-old female with a history of PCOS, hypertension, and recurrent UTIs. She states she is unsure what time, but she used heroin and the next thing she remembers was being on a stretcher. According to the ER note, she snorted the heroin. The patient states she was given Narcan. She says this is the first time she has ever used heroin. She does admit to smoking marijuana on occasion. She denies any other drug use. She does drink alcohol frequently. She was evaluated in the emergency room for a heroin overdose and was also found to have a community-acquired pneumonia. She states approximately 2 days ago she began to develop a cough and some pain in her chest with coughing. Of note she does smoke a pack cigarettes daily. She was admitted for further evaluation and treatment. <Margo Cao - 12/01/18 11:46> Hospital Course Hospital Course: The patient's chest x-ray showed bilateral upper lobe pneumonia. Her drug screen was positive for marijuana. She was started on IV antibiotics, IV steroids, and duo nebs for her pneumonia. She was placed on oxygen due to low oxygen sats. She was also started on Flagyl due to positive Trichomonas in her urine. Care management was consulted for discussion of treatment options for her drug abuse. Her symptoms improved throughout her stay. Her shortness of breath resolved and her coughing improved. She was able to sleep and tolerated a diet. She was able to be weaned off of nasal oxygen and room air sats were normal. Her preliminary blood cultures were positive for staph species with MecA gene. Her Zithromax and Rocephin were discontinued and she was started on vancomycin. She was anxious to go home but we were still awaiting sensitivities on her blood culture. She was stable to be discharged home and will come back to the hospital for daily vancomycin dosing until sensitivities are available. We may be able to switch her to PO antibiotics depending on the sensitivities. She will also need to take PO flagyl. She will f/u in Dr. Delvalle's office in 10 days. <Margo Cao - 12/01/18 11:46> Objective Vital signs: Temp Pulse Resp BP Pulse Ox 98.6 F 86 20 124/62 100 12/01/18 08:00 12/01/18 08:00 12/01/18 08:00 12/01/18 08:00 12/01/18 08:00 <Vargas Bolivar - 12/07/18 18:12> Temp Pulse Resp BP Pulse Ox 98.6 F 86 20 124/62 100 12/01/18 08:00 12/01/18 08:00 12/01/18 08:00 12/01/18 08:00 12/01/18 08:00 <Margo Cao - 12/01/18 11:46> Narrative: - Constitutional no acute distress - *Routine HEENT Exam Head: Present: normocephalic, atraumatic Eye: Present: EOMI, PERRL (right subconjunctival hemorrhage) ENT: Present: mucous membranes dry - *Routine Neck Exam Present: supple. Absent: lymphadenopathy - *Routine Respiratory Exam Present: rhonchi (throughout), wheezes (throughout) - *Routine Cardiovascular Exam Present: RRR - *Routine Abdominal Exam Present: soft, normoactive bowel sounds. Absent: tenderness - *Routine Extremities Exam Absent: cyanosis, clubbing, edema - *Routine Skin Exam Present: warm. Absent: rash - *Routine Neurological Exam Present: alert, oriented X3 <Margo Cao - 12/01/18 11:46> Results Labs on day of discharge: Labs from last 24 hours 12/01/18 12/01/18 06:32 06:32 WBC 12.4 H RBC 4.12 L Hgb 12.0 L Hct 37.6 MCV 91.2 MCH 29.2 MCHC 32.1 RDW 13.8 Plt Count 259 MPV 8.1 Neut % (Auto) 69.1 Lymph % (Auto) 25.6 [place] % (Auto) 4.9 Eos % (Auto) 0.2 Baso % (Auto) 0.2 Neut # (Auto) 8.6 H Lymph # (Auto) 3.2 [place] # (Auto) 0.6 Eos # (Auto) 0.0 Baso # (Auto) 0.0 Hemoglobin A1c 5.7 Preliminary micro results at discharge 11/29/18 04:51 Blood Culture - Preliminary Blood Gram Positive Cocci 11/29/18 04:51 Blood Culture - Preliminary Blood Gram Positive Cocci Gram Positive Cocci#2 11/29/18 10:05 Sputum Culture - Preliminary Sputum - Expectorated Sputum <Margo Cao - 12/01/18 11:46> DS: Diagnosis - Discharge Diagnosis (1) CAP (community acquired pneumonia) Status: Acute (2) Heroin overdose Status: Acute (3) Trichomonas infection Status: Acute (4) Subconjunctival hemorrhage of right eye Status: Acute (5) Bacteremia due to Staphylococcus Status: Acute <Margo Cao 12/01/18 11:40> (1) CAP (community acquired pneumonia) Status: Acute (2) Heroin overdose Status: Acute (3) Trichomonas infection Status: Acute (4) Subconjunctival hemorrhage of right eye Status: Acute (5) Bacteremia due to Staphylococcus Status: Acute <Osmel,Vargas Arthur - 12/07/18 18:12> Discharge Plan - Patient Discharge Instructions ACTIVITY: Continue current activity <SmithreglaMargo - 12/01/18 11:46> DIET: continue same diet <Margo Cao 12/01/18 11:46> Patient Instructions: DI for Pneumonia -- Adult <Osmel,Vargas Arthur - 12/07/18 18:12> Forms: <OsmelVargas Arthur - 12/07/18 18:12> - Follow up Plan Follow up with: Mena Carmichael APRN [Advanced Practice Nurse] - 10 days <OsmelVargas Arthur - 12/07/18 18:12> Disposition: Home, Self-Care <Osmel,Vargas Arthur - 12/07/18 18:12> Home Medications: Home Medications Medication Instructions Recorded Confirmed Type metroNIDAZOLE [metroNIDAZOLE 500mg 500 mg PO BID #10 tab 12/01/18 Rx Tablet] <OsmelVargas Arthur - 12/07/18 18:12> Prescriptions/Medication Reconciliation: New metroNIDAZOLE [metroNIDAZOLE 500mg Tablet] 500 mg PO BID #10 tab <OsmelVargas Arthur - 12/07/18 18:12> - Additional Information Additional Information: Concur with plan for discharge. <Vargas Bolivar - 12/07/18 18:12>
== END 2018-12-01 11:11 | disposition home or self-care (01) | DRG 194 ==
LOC: ER 03:06 → 2ND 03:06 → OBSVTOIN 06:11 → 2ND 07:00
PROVIDERS: ADMIT Family Medicine; ATTEND Family Medicine
CPT/HCPCS: 36415; 71020; 71046; 73630; 80048; 80053; 80305; 80329; 81001; 81025; 83036; 83605; 84484; 85007; 85025; 87040; 87070; 87077; 87186; 87205; 93005; 94640; 94761; 96365; 96367; 96375; 99285; J0456; J2405; J3370

== ENCOUNTER → 2018-12-01 20:04 | Outpatient (CLI) | payer OTHER, SELFPAY ==
--- NOTE | 2018-12-01 13:24 | HMH.PHACONS ---
- Pharmacy Consult Date: 12/01/18 Time: 13:24 Referring provider: DR. CARO Reason for Consult:: VANCOMYCIN DOSING Allergies and ADEs:: Allergies Allergy/AdvReac Type Severity Reaction Status Date / Time No Known Allergies Allergy Verified 11/29/18 08:45 Home Medications:: Home Medications Medication Instructions Recorded Confirmed Type metroNIDAZOLE [metroNIDAZOLE 500mg 500 mg PO BID #10 tab 12/01/18 Rx Tablet] Height: 1.68 m Weight: 114.3 kg Laboratory Results:: N/A Medical History: Reports:: Hypertension Denies:: Cancer, Diabetes Mellitus Type 1, Diabetes Mellitus Type 2, MRSA Assessment and Plan - Assessment and plan all Dx Assessment and Plan for all problems:: BASED ON PATIENT FACTORS, RECOMMEND VANCOMYCIN 2,250MG IV BID AN OUTPATIENT. PHARMACY WILL OBTAIN TROUGH LEVEL PRIOR TO AM DOSE ON 12/02/18 AND ADJUST DOSE APPROPRIATE. -BRIANDA CHRISTIANSEN, ENIDD
[2018-12-01 21:06] VITALS: BP 134/82; PULSE 82; RESP 17; TEMP 37.1; O2SAT 97
[2018-12-01 22:54] VITALS: BP 127/85; PULSE 79; RESP 15; TEMP 36.7; O2SAT 99
== END ==
PROVIDERS: PCP Family Medicine; Visit Provider Family Medicine
DX: J18.9 Pneumonia, unspecified organism (principal)
CPT/HCPCS: 96365; 96366; 96374; J3370

== ENCOUNTER → 2018-12-02 08:10 | Outpatient (CLI) | payer OTHER, SELFPAY ==
[2018-12-02 08:49] VITALS: BP 145/96; PULSE 71; RESP 18; TEMP 36.9; O2SAT 98; BMI 34.9
[2018-12-02 10:39] LABS: Vancomycin,Trough 9.6 mcg/ml (10.0-20.0)
[2018-12-02 13:00] VITALS: BP 132/85; PULSE 68; RESP 20; TEMP 36.9; O2SAT 98
[2018-12-02 21:20] VITALS: BMI 34.9
[2018-12-02 21:21] VITALS: BP 128/80; PULSE 104; RESP 19; TEMP 36.8; O2SAT 100
[2018-12-02 23:55] VITALS: BP 132/89; PULSE 80; RESP 16; TEMP 36.8; O2SAT 97
--- NOTE | 2018-12-03 12:40 | HMH.PHACONS ---
- Pharmacy Consult Date: 12/02/18 Time: 12:40 Referring provider: DR. CARO Reason for Consult:: VANCOMYCIN TROUGH LEVEL Allergies and ADEs:: Allergies Allergy/AdvReac Type Severity Reaction Status Date / Time No Known Allergies Allergy Verified 11/29/18 08:45 Home Medications:: Home Medications Medication Instructions Recorded Confirmed Type metroNIDAZOLE [metroNIDAZOLE 500mg 500 mg PO BID #10 tab 12/01/18 Rx Tablet] Height: 1.73 m Weight: 104.326 kg Laboratory Results:: VANCOMYCIN TROUGH LEVEL: 9.6 MCG/ML Medical History: Reports:: Hypertension Denies:: Cancer, Diabetes Mellitus Type 1, Diabetes Mellitus Type 2, MRSA Assessment and Plan - Assessment and plan all Dx Assessment and Plan for all problems:: BASED ON VANCOMYCIN TROUGH LEVEL AND PATIENT FACTORS, RECOMMEND CONTINUING VANCOMYCIN 2250 MG IV Q12H. PHARMACY WILL CONTINUE TO MONITOR DAILY.
== END ==
PROVIDERS: PCP Family Medicine; Visit Provider Family Medicine
DX: J18.9 Pneumonia, unspecified organism (principal)
CPT/HCPCS: 80202; 96365; 96366; J3370

== ENCOUNTER → 2018-12-03 08:48 | Outpatient (CLI) | payer OTHER, SELFPAY ==
[2018-12-03 09:00] VITALS: BP 132/83; PULSE 81; RESP 16; TEMP 36.8; O2SAT 96
--- NOTE | 2018-12-03 09:37 | HMH.PNCARD ---
Subjective Date: 12/03/18 Time: 09:37 Progress Note: A&P Assessment and Plan for All Diagnoses:: Patient was here to get her IV vancomycin for her MRSA infection in the outpatient setting with cultures pending at the time of discharge. However nursing staff was having some trouble getting IV, as she is a chronic drug abuser. So the possibility of changing her antibiotic was discussed with the nursing staff. Upon chart review it seems like patient was sensitive to Levaquin for all 3 organisms. Please see micro report for full details. The patient's IV vancomycin was stopped and she was given a prescription for Levaquin 750 mg take 1 tab p.o. daily for 14 days. I also communicated this with the nursing staff.
--- NOTE | 2018-12-03 10:52 | PC.NURSE ---
PER DR GUILLEN PATIENT WAS GIVEN A PAPER RX FOR LEVAQUIN AND OP VANCOMYCIN WILL BE DC AT THIS TIME
[2018-12-03 11:19] VITALS: BP 127/91; PULSE 79; RESP 18; TEMP 37.1; O2SAT 99
== END ==
PROVIDERS: PCP Family Medicine; Visit Provider Family Medicine
DX: J18.9 Pneumonia, unspecified organism (principal)
CPT/HCPCS: 96365; 96366; J3370

== ENCOUNTER → 2018-12-22 10:51 | Outpatient (CLI) | payer OTHER, SELFPAY ==
--- NOTE | 2018-12-22 11:06 | US_ITS ---
US thyroid HISTORY: Weight gain, neck swelling, enlarged thyroid ITS.REASON: enlarged thyroid ORDERING PHYSICIAN: Mena Carmichael PATIENT AGE: 28 years Comparison: None FINDINGS: The right lobe is 4.6 x 1.5 x 2.1 cm. There is homogeneous echogenicity. No discrete nodule or mass. The left lobe is 4.5 x 1.6 x 1.7 cm. Homogeneous echogenicity. No discrete nodule or mass. The isthmus has an unremarkable appearance IMPRESSION: Enlarged thyroid gland. No discrete nodule
== END ==
PROVIDERS: PCP Nurse Practitioner Family; Visit Provider Nurse Practitioner Family
DX: E04.9 Nontoxic goiter, unspecified (principal)
CPT/HCPCS: 76536